=== PATIENT | male | born 1980 | race Caucasian/White ===

== ENCOUNTER → 2016-10-26 | Outpatient (CLI) | payer BC ==
--- NOTE | 2016-10-26 19:11 | DIAGNOSTIC IMAGING REPORT ---
PA CHEST WITH LEFT-SIDED RIB SERIES CLINICAL HISTORY: Left-sided chest wall pain. FINDINGS: A PA chest radiograph with 4 additional views from a left-sided rib series is compared to study dated 01/27/2011. The cardiomediastinal silhouette is unremarkable. Airspace consolidation is seen at the left lung base. The lungs and pleural spaces are otherwise clear. No pleural effusion on pneumothorax is seen. There is no radiographic evidence of left-sided rib fracture as clinically queried. The remainder of the bony thorax appears intact. IMPRESSION: 1. There is left basilar airspace consolidation. Although this could potentially represent atelectasis, correlate clinically for evidence of an infectious/inflammatory pneumonitis. Radiographic follow-up to resolution is recommended. 2. There is no radiographic evidence of acute/distracted left-sided rib fracture on the rib series as clinically queried. Electronically signed by: Mingo Granger M.D. 10/26/2016 7:09 PM Dictated Date/Time: 10/26/2016 7:05 PM
== END | disposition home or self-care (01) ==
LOC: C.RAD 18:40
PROVIDERS: ATTEND Physician Assistant Medical
DX: R07.81 Pleurodynia (principal)

== ENCOUNTER → 2016-11-22 | Outpatient (CLI) | payer BC ==
--- NOTE | 2016-11-22 19:09 | DIAGNOSTIC IMAGING REPORT ---
TWO VIEW CHEST CLINICAL HISTORY: Left-sided chest wall pain. FINDINGS: PA and lateral chest radiographs are compared to study dated 10/26/2016. The cardiomediastinal silhouette is unremarkable. The lungs and pleural spaces are clear. There is no pneumothorax. The bony thorax appears intact. IMPRESSION: The lungs are clear. Airspace consolidation at the left lung base has resolved from 10/26/2016. Electronically signed by: Mingo Granger M.D. 11/22/2016 7:08 PM Dictated Date/Time: 11/22/2016 7:06 PM
== END | disposition home or self-care (01) ==
LOC: C.RAD 18:40
PROVIDERS: ATTEND Physician Assistant Medical
DX: J18.1 Lobar pneumonia, unspecified organism (principal); R07.81 Pleurodynia

== ENCOUNTER → 2016-12-02 | Outpatient (CLI) | payer BC ==
[2016-12-02 17:34] LABS: MEAN CELL VOLUME 98.7 fL (80-100); MEAN CORPUSCULAR HEMOGLOBIN 33.9 pg (25-34); MEAN CORPUSCULAR HGB CONC 34.3 g/dl (32-36); MEAN PLATELET VOLUME 9.8 fL (7.4-10.4); PLATELET COUNT 220 K/uL (130-400); RED BLOOD COUNT 4.46 M/uL (4.7-6.1); WHITE BLOOD COUNT 5.81 K/uL (4.8-10.8)
[2016-12-02 18:04] LABS: ALT/SGPT 76 U/L (12-78); AST/SGOT 82 U/L (15-37); BLOOD UREA NITROGEN 7 mg/dl (7-18); BUN/CREATININE RATIO 9.3 (10-20); CALCIUM 9.3 mg/dl (8.5-10.1); CARBON DIOXIDE 28 mmol/L (21-32); CHLORIDE 101 mmol/L (98-107); CREATININE 0.72 mg/dl (0.60-1.40); GLUCOSE 105 mg/dl (70-99); POTASSIUM 4.1 mmol/L (3.5-5.1); SODIUM 136 mmol/L (136-145)
[2016-12-02 18:15] LABS: ALB/GLOB RATIO 1.2 (0.9-2); ALKALINE PHOSPHATASE 94 U/L (45-117)
[2016-12-02 18:50] LABS: LYME DISEASE AB IGG NEG (NEG); LYME DISEASE AB IGM NEG (NEG)
== END | disposition home or self-care (01) ==
LOC: C.LABBFT 11:31
PROVIDERS: ATTEND Physician Assistant Medical
DX: R25.2 Cramp and spasm (principal)

== ENCOUNTER → 2016-12-09 | Outpatient (CLI) | payer BC ==
--- NOTE | 2016-12-09 08:16 | DIAGNOSTIC IMAGING REPORT ---
ABDOMINAL ULTRASOUND, RIGHT UPPER QUADRANT HISTORY: Elevated transaminase level. COMPARISON: None. FINDINGS: Liver morphology is normal. Hepatic echogenicity is likely increased. There are no hepatic lesions. There is no biliary ductal dilatation. The common bile duct measures 4 mm in caliber. The gallbladder is normal. There are no gallstones. The pancreas is within normal limits although the tail is partially obscured. There is no right hydronephrosis. IMPRESSION: 1. No gallstones or biliary ductal dilatation. 2. Possible fatty infiltration of the liver. Electronically signed by: Goyo Swift M.D. 12/09/2016 8:15 AM Dictated Date/Time: 12/09/2016 8:13 AM
[2016-12-09 11:08] LABS: TOTAL IRON BINDING CAPACITY 341 mcg/dl (250-450)
[2016-12-10 13:56] LABS: ALPHA-1-ANTITRYPSIN TC 67710E 135 MG/DL (83-199)
== END | disposition home or self-care (01) ==
LOC: C.ULTR 07:39
PROVIDERS: ATTEND Physician Assistant Medical
DX: R74.0 Nonspecific elevation of levels of transaminase and lactic acid dehydrogenase [LDH] (principal)

== ENCOUNTER 2023-11-01 16:29 | Inpatient (IN) ==
--- NOTE | 2023-11-01 16:35 | ED Triage Note ---
Date of Service November 01, 2023 Provider in Triage Author: Jackie Ruggiero History of Present Illness This patient was briefly evaluated while in triage. An abbreviated physical exam was performed. This patient is a 43-year-old Male who presents to the ED for evaluation of jaundice. He has noticed this over the past few days. States that he has noticed yellowing of his eyes and skin. Denies any abdominal pain or vomiting. Does report that he has been drinking heavier than normal recently due to a family . Physical Exam GENERAL: Non-toxic and in no acute distress. HEENT: Scleral icterus noted. SKIN: Jaundice noted. HEART: Regular rate and rhythm. LUNGS: Clear to auscultation. No accessory muscle use. ABDOMEN: Soft, nontender. NEURO: Alert and oriented. No obvious neurological deficits on quick neuro exam. Initial orders for labs and / or imaging were placed and patient was placed in the waiting area until a bed is available. Please see further documentation for the full ED course.
[2023-11-01 17:54] LABS: Albumin Level 3.1 gm/dl (3.4-5.0); BUN Creatinine Ratio 11.6 (10-20); Bilirubin Direct 7.7 mg/dl (0-0.2); Bilirubin,Total 13.1 mg/dl (0.2-1.0); Calcium 8.6 mg/dl (8.6-10.3); Creatinine Clr Calc Pharmacy 126.4 ml/min; Est GFR (African American) 133.8 ml/min; Est GFR (Non-African American) 115.5 ml/min; Total Protein 7.9 gm/dl (6.0-8.3)
[2023-11-01 18:11] LABS: INR 2.4 (0.9-1.1); Prothrombin Time 25.3 Seconds (9.0-12.0)
[2023-11-01 18:19] LABS: Basophils # (auto) 0.07 K/uL (0.00-0.20); Basophils % (auto) 0.9 %; Eosinophils # (auto) 0.09 K/uL (0.00-0.50); Eosinophils % (auto) 1.1 %; Hematocrit (blood only) 35.9 % (42.0-52.0); Hemoglobin 13.2 g/dl (14.0-18.0); Howell-Jolly Bodies 1+; Immature Granulocytes # (auto) 0.05 K/uL (0.01-0.20); Immature Granulocytes % (auto) 0.6 %; Lymphocytes # (auto) 0.24 K/uL (1.20-3.40); Mean Corpuscular Hgb Conc 36.8 g/dL (32.0-36.0); Mean Corpuscular Volume 97.8 fL (80.0-100.0); Mean Platelet Volume 11.2 fL (9.4-12.4); Monocytes # (auto) 1.33 K/uL (0.11-0.59); Monocytes % (auto) 16.9 %; Neutrophils # (auto) 6.11 K/uL (1.40-6.50); Neutrophils % (auto) 77.5 %; Pappenheimer Bodies 2+; Platelet Count 83 K/uL (130-400); Platelet Estimate Decreased (Normal); Polychromasia 2+; RDW Coefficient of Variation 17.1 % (11.5-14.5); RDW Standard Deviation 60.9 fL (36.4-46.3); Red Blood Count 3.67 M/uL (4.70-6.10); Target Cells 2+; White Blood Count 7.89 K/ul (4.8-10.8)
[2023-11-01] MEDS: OPTIRAY 320 100ml IV ONE (18:50)
--- NOTE | 2023-11-01 19:46 | CT Scan Report ---
Exam(s): CT ABDOMEN + PELVIS With Contrast IV Amt: 93 cc opti 320 EXAM: CT Abdomen and Pelvis With Intravenous Contrast CLINICAL HISTORY: Reason for exam: Jaundice. TECHNIQUE: Axial computed tomography images of the abdomen and pelvis with intravenous contrast. CTDI is 11.18 mGy and DLP is 556.53 mGy-cm. Automated exposure control was utilized for the study. A dose lowering technique was utilized adhering to the principles of ALARA. CONTRAST: Patient received 93 cc opti 320 of IV contrast COMPARISON: No relevant prior studies available. FINDINGS: Lung bases: Unremarkable. No mass. No consolidation. ABDOMEN: Liver: Hepatic steatosis. Gallbladder and bile ducts: Unremarkable. No calcified stones. No ductal dilation. Pancreas: Unremarkable. No mass. No ductal dilation. Spleen: Splenomegaly. Adrenals: Unremarkable. No mass. Kidneys and ureters: Unremarkable. No hydronephrosis or delayed nephrogram prepared wall thickening of the urinary bladder, correlate for UTI. Stomach and bowel: Mild wall thickening of the ascending and proximal transverse colon, consistent with colitis. Diverticulosis, without acute diverticulitis. No bowel obstruction. No free air. PELVIS: Appendix: No findings to suggest acute appendicitis. Bladder: Unremarkable. No mass. Reproductive: Unremarkable as visualized. ABDOMEN and PELVIS: Intraperitoneal space: See above. Bones/joints: Degenerative changes of the spine. No acute fracture. No dislocation. Soft tissues: Unremarkable. Vasculature: Atherosclerotic changes of the aorta. No abdominal aortic aneurysm. Lymph nodes: Unremarkable. No enlarged lymph nodes. IMPRESSION: 1. No hydronephrosis or delayed nephrogram prepared wall thickening of the urinary bladder, correlate for UTI. 2. Mild wall thickening of the ascending and proximal transverse colon, consistent with colitis. 3. Hepatic steatosis. 4. Splenomegaly. 5. Diverticulosis, without acute diverticulitis. No bowel obstruction. No free air. Electronically signed by: Jamin Louise MD 11/01/23 19:45 PM
[2023-11-01] MEDS: POTASSIUM CHLORIDE CRTAB 20 MEQ TABCR PO STA ×2 (20:26→23:46)
[2023-11-01] MEDS: PHYTONADIONE 10 MG in DEXTROSE 5% 50 ML IV ONE (20:41)
--- NOTE | 2023-11-01 20:48 | History & Physical Report ---
Date of Service November 01, 2023 Assessment & Plan (1) Jaundice: Plan: 43-year-old male presenting with painless jaundice. Patient reports daily alcohol use over the past several weeks. Has been trying to cut back over the last several days. Last drink on 10/28/2023. Patient noted by a friend to have scleral icterus and jaundice on 10/29/2023. Patient otherwise feels well and denies recent illness, abdominal pain, nausea, vomiting, edema. Abnormal LFTs and predominantly obstructive pattern with T. bili = 13.1, D bili = 7.7, alk phos = 225. Also with elevation of AST = 86. Patient does have evidence of synthetic dysfunction with low albumin = 3.1, sodium = 131, INR = 2.4, platelets = 83. Additional workup thus far reveals markedly elevated ferritin at 1430 as well as negative acetaminophen level Acute hepatitis panel is pending as is workup for tickborne illnesses (Lyme, anaplasmosis, babesiosis) -Admit to medical Awaiting additional workup Repeat labs in the morningBMP, CBC, LFTs, INR MRCP ordered. Patient reports having metal in his eye. X-ray of orbits has been ordered and needs to be read by radiologist prior to proceeding with the MRI Dietary consultation appreciated -GI consultationappreciate assistance Elevated ferritin at 1430 raises concern for possible hereditary hemochromatosis. Will order transferrin saturation for additional workup. Consider HFE testing, possible biopsy pending results Patient did receive 1 dose of prednisolone 40 mg. Will hold off on additional steroids at this time (2) Abnormal LFTs: Plan: As above, patient with painless jaundice. Predominantly obstructive pattern. He does have a history of alcohol abuse but reports drinking only 2-3 beverages per night. MRCP orderedwill be completed pending results of orbit x-ray Follow acute hepatitis panel, tickborne illness panel Transferrin saturation-possible hereditary hemochromatosis? Given elevated ferritin. Appreciate GI assistance with diagnosis -HUGO S at risk protocol with IV Ativan as needed Continue thiamine and vitamin B12 (3) Dilated aortic root: Plan: Patient with dilated aortic root. Last measured at 4.3 cm. He follows routinely with cardiology and is on beta-winter therapy with metoprolol 50 mg p.o. daily Continue metoprolol (4) Electrolyte abnormality: Plan: Patient with hypomagnesemia, hypokalemia and hypophosphatemia. Also with hyponatremia which is likely secondary to his underlying liver disease. Possible poor dietary intake resulting in other electrolyte abnormalities Replete and repeat labs History of Present Illness Chief Complaint: Jaundice, scleral icterus Primary Care Provider: Lenore Swift MD Gaetano Ortiz is a pleasant 43-year-old male with history of a dilated aortic root, hypertension and anxiety presenting from home with report of scleral icterus and jaundice. Patient reports feeling fine. Denies fever, chills, nausea, vomiting, diarrhea, edema, bleeding or bruising, abdominal pain or bloating. No recent illness. He reports that his friend commented to him on 10/29/2023 that his eyes appeared yellow. Patient with no additional complaints. Patient's mother approximately 1 month ago from an [place]. Patient has been drinking more alcohol over the last couple of weeks. He reports drinking 2-3 beverages per night, possibly more on occasion. He does report weaning himself down over the last several days. His last drink was on 10/28/2023. He reports that he threw away all the alcohol in his home over the weekend. He has no history of withdrawal symptoms or seizures. No pre-existing history of liver disease although was told once that his enzymes were high which was thought to be secondary to alcohol. Patient with no history of blood transfusions or IV drug use. He does not take Tylenol. No known tick exposures. He does have several tattoos which he got at reputable places. In the ER he is afebrile, hemodynamically stable ER course: Vitamin K 10 mg IV Potassium chloride 80 mEq p.o. Prednisolone 40 mg p.o. Banana bag x 500 mL Allergies Allergy/AdvReac Type Severity Reaction Status Date / Time No Known Allergies Allergy Verified 11/01/23 20:54 Home Medications Medication Instructions Recorded Confirmed Type folic acid 1 mg tablet 1 mg PO DAILY 10/18/18 11/01/23 History thiamine HCl (vitamin B1) 100 mg 100 mg PO DAILY 10/18/18 11/01/23 History tablet (Vitamin B-1) metoprolol succinate 50 mg 50 mg PO DAILY #90 tabs 09/19/23 11/01/23 Rx tablet,extended release 24 hr ibuprofen 200 mg tablet 600 mg PO Q6H PRN Pain 11/01/23 11/01/23 History Past Med/Surg History Medical History (Updated 11/02/23 @ 01:26 by Josie Horvath DO) Tachycardia Sinusitis Rib pain on left side Nicotine dependence Muscle cramps Left lower lobe pneumonia Hypertension Generalized anxiety disorder Elevated transaminase level Dilated aortic root Surgical History (Updated 11/02/23 @ 01:06 by Josie Horvath DO) History of hernia repair Family History Father Heart disease Myocardial infarction Mother Heart disease Breast cancer Myocardial infarction Denies family history of Ovarian cancer Prostate cancer Colorectal cancer Social History (Updated 11/02/23 @ 01:07 by Josie Horvath DO) Smoking Status: Current every day smoker Tobacco Type: Cigarettes Age Started Using Tobacco: 13; packs per day: 1; Second Hand Exposure: No; Do You Dip or Chew Tobacco: No; Hx Alcohol Use: Yes Alcohol type: beer and hard liquor Hx Substance Use: Yes Last Used Substance: Days (ago) Last Used Substance Other:: last night Preferred Language: Sinhala Communication Ability: Effective Accounts Receivable Manager Required: No Beliefs That Will Affect Care: None marital status: Current Living Situation: Spouse current occupational status: unemployed Feels Safe at Home: Yes Dental Care, Regularly: No Physical Activity Frequency: Daily Seatbelt Use: always Sunscreen Use: No Assistive Devices: None Review of Systems Review of Systems: All systems reviewed & are unremarkable except as noted in HPI & below Physical Exam Physical Exam: General: Anxious appearing male, resting comfortably, no acute distress Skin: Patient with jaundice HEENT: NC/AT, PERRL, EOMI, icteric sclera, conjunctiva without injection, external ear normal to inspection and nontender, nares patent, moist mucus membranes, dentition intact, jaundice of oral mucosa, neck supple, trachea midline, no LAD, no thyromegaly, no JVD Heart: +S1/S2, regular, no m/r/g Lungs: equal air entry bilaterally, no rales/rhonchi/wheezes Abd: +BS, soft, NT/ND, no masses/organomegaly/ascites Ext: warm, 2+ pulses in UE/LE bilaterally, no clubbing/cyanosis or edema Neuro: nonfocal, patient AA&O x 4, speech intact, no facial droop, moving all extremities on command with equal strength 5/5 Results & Data Results & Data Vital Signs (Past 12 Hours) Vital Signs Temp Pulse Pulse Resp BP BP Pulse Ox 11/01/23 20:12 69 17 148/85 H 97 11/01/23 16:30 82 18 148/77 H 97 11/01/23 16:30 36.9 C 82 18 148/77 H 97 O2 Del Method 11/01/23 20:12 Room Air 11/01/23 16:30 Room Air 11/01/23 16:30 Room Air Laboratory Results Laboratory Results WBC 7.89 K/ul (4.8-10.8) 11/01/23 17:07 RBC 3.67 M/uL (4.70-6.10) L 11/01/23 17:07 Hgb 13.2 g/dl (14.0-18.0) L 11/01/23 17:07 Hct 35.9 % (42.0-52.0) L 11/01/23 17:07 MCV 97.8 fL (80.0-100.0) 11/01/23 17:07 MCH 36.0 pg (25.0-34.0) H 11/01/23 17:07 MCHC 36.8 g/dL (32.0-36.0) H 11/01/23 17:07 RDW Std Deviation 60.9 fL (36.4-46.3) H 11/01/23 17:07 RDW Coeff of Mikki 17.1 % (11.5-14.5) H 11/01/23 17:07 Plt Count 83 K/uL (130-400) L 11/01/23 17:07 MPV 11.2 fL (9.4-12.4) 11/01/23 17:07 Immature Gran % (Auto) 0.6 % 11/01/23 17:07 Neut % (Auto) 77.5 % 11/01/23 17:07 Lymph % (Auto) 3.0 % 11/01/23 17:07 [place] % (Auto) 16.9 % 11/01/23 17:07 Eos % (Auto) 1.1 % 11/01/23 17:07 Baso % (Auto) 0.9 % 11/01/23 17:07 Neut # (Auto) 6.11 K/uL (1.40-6.50) 11/01/23 17:07 Lymph # (Auto) 0.24 K/uL (1.20-3.40) L 11/01/23 17:07 [place] # (Auto) 1.33 K/uL (0.11-0.59) H 11/01/23 17:07 Eos # (Auto) 0.09 K/uL (0.00-0.50) 11/01/23 17:07 Baso # (Auto) 0.07 K/uL (0.00-0.20) 11/01/23 17:07 Immature Gran # (Auto) 0.05 K/uL (0.01-0.20) 11/01/23 17:07 Platelet Estimate Decreased (Normal) L 11/01/23 17:07 Polychromasia 2+ 11/01/23 17:07 Pappenheimer Bodies 2+ 11/01/23 17:07 Target Cells 2+ 11/01/23 17:07 [place] Bodies 1+ 11/01/23 17:07 PT 25.3 Seconds (9.0-12.0) H 11/01/23 17:07 INR 2.4 (0.9-1.1) H 11/01/23 17:07 Sodium 131 mmol/L (136-145) L 11/01/23 17:07 Potassium 3.0 mmol/L (3.5-5.1) L 11/01/23 17:07 Chloride 99 mmol/L (98-107) 11/01/23 17:07 Carbon Dioxide 23 mmol/L (21-32) 11/01/23 17:07 Anion Gap 9 (3-11) 11/01/23 17:07 BUN 8 mg/dl (6-23) 11/01/23 17:07 Creatinine 0.69 mg/dl (0.6-1.4) 11/01/23 17:07 Est Cr Clr Drug Dosing 126.4 ml/min 11/01/23 17:07 Est GFR ( Amer) 133.8 ml/min 11/01/23 17:07 Est GFR (Non-Af Amer) 115.5 ml/min 11/01/23 17:07 BUN/Creatinine Ratio 11.6 (10-20) 11/01/23 17:07 Glucose 100 mg/dl (70-99(Fasting)) H 11/01/23 17:07 Calcium 8.6 mg/dl (8.6-10.3) 11/01/23 17:07 Phosphorus 1.8 mg/dl (2.5-4.9) L 11/01/23 22:39 Magnesium 1.5 mg/dl (1.7-2.4) L 11/01/23 22:39 Ferritin 1430.0 ng/ml (8-388) H 11/01/23 22:39 Total Bilirubin 13.1 mg/dl (0.2-1.0) H 11/01/23 17:07 Direct Bilirubin 7.7 mg/dl (0-0.2) H 11/01/23 17:07 AST 86 U/L (13-39) H 11/01/23 17:07 ALT 22 U/L (7-52) 11/01/23 17:07 Alkaline Phosphatase 225 U/L (34-104) H 11/01/23 17:07 Total Protein 7.9 gm/dl (6.0-8.3) 11/01/23 17:07 Albumin 3.1 gm/dl (3.4-5.0) L 11/01/23 17:07 Lipase 89 U/L (11-82) H 11/01/23 17:07 Acetaminophen < 3 ug/ml (10-30) L 11/01/23 22:39 Ethyl Alcohol mg/dL < 10.0 mg/dl (<10.0) 11/01/23 22:39 Anaplasma Smear See Comment 11/01/23 17:07 Babesia Smear See Comment 11/01/23 17:07 Impressions Abdomen/Pelvis CT 11/01/23 16:35 Exam(s): CT ABDOMEN + PELVIS With Contrast IV Amt: 93 cc opti 320 EXAM: CT Abdomen and Pelvis With Intravenous Contrast CLINICAL HISTORY: Reason for exam: Jaundice. TECHNIQUE: Axial computed tomography images of the abdomen and pelvis with intravenous contrast. CTDI is 11.18 mGy and DLP is 556.53 mGy-cm. Automated exposure control was utilized for the study. A dose lowering technique was utilized adhering to the principles of ALARA. CONTRAST: Patient received 93 cc opti 320 of IV contrast COMPARISON: No relevant prior studies available. FINDINGS: Lung bases: Unremarkable. No mass. No consolidation. ABDOMEN: Liver: Hepatic steatosis. Gallbladder and bile ducts: Unremarkable. No calcified stones. No ductal dilation. Pancreas: Unremarkable. No mass. No ductal dilation. Spleen: Splenomegaly. Adrenals: Unremarkable. No mass. Kidneys and ureters: Unremarkable. No hydronephrosis or delayed nephrogram prepared wall thickening of the urinary bladder, correlate for UTI. Stomach and bowel: Mild wall thickening of the ascending and proximal transverse colon, consistent with colitis. Diverticulosis, without acute diverticulitis. No bowel obstruction. No free air. PELVIS: Appendix: No findings to suggest acute appendicitis. Bladder: Unremarkable. No mass. Reproductive: Unremarkable as visualized. ABDOMEN and PELVIS: Intraperitoneal space: See above. Bones/joints: Degenerative changes of the spine. No acute fracture. No dislocation. Soft tissues: Unremarkable. Vasculature: Atherosclerotic changes of the aorta. No abdominal aortic aneurysm. Lymph nodes: Unremarkable. No enlarged lymph nodes. IMPRESSION: 1. No hydronephrosis or delayed nephrogram prepared wall thickening of the urinary bladder, correlate for UTI. 2. Mild wall thickening of the ascending and proximal transverse colon, consistent with colitis. 3. Hepatic steatosis. 4. Splenomegaly. 5. Diverticulosis, without acute diverticulitis. No bowel obstruction. No free air. Electronically signed by: Jamin Louise MD 11/01/23 19:45 PM Portal Vein US 11/01/23 20:47 Exam(s): US OTHER duplex portal hepatic veins EXAM: US Duplex Arterial/Venous of the Abdomen, Complete CLINICAL HISTORY: Reason for exam: Abnormal LFTs. TECHNIQUE: Real-time duplex ultrasound scan of the abdomen integrating B-mode two- dimensional vascular structure, Doppler spectral analysis and color flow Doppler imaging. COMPARISON: Same day CT abdomen/pelvis FINDINGS: Portal veins: Patent portal veins with normal direction of flow. Hepatic artery: Patent hepatic arteries. Hepatic veins: Patent hepatic veins. Other vasculature: Recanalized patent umbilical vein. Liver: Distended gallbladder containing sludge. Nonspecific mild prominence of the gallbladder wall and mild edema. This could be secondary to underlying liver disease. Negative sonographic Mendez's sign suggests against acute cholecystitis. IMPRESSION: Distended gallbladder containing sludge. Nonspecific mild prominence of the gallbladder wall and mild edema. This could be secondary to underlying liver disease. Negative sonographic Mendez's sign suggests against acute cholecystitis. Patent hepatic vessels with normal direction of flow. Electronically signed by: Yancy Crawford M.D. 11/01/23 22:31 PM Code Status & VTE Plan VTE Prophylaxis Plan VTE Prophylaxis will be ordered: Yes PG Care Time/CCT Total # of Minutes Spent Total Time Spent with Patient: Total time spent is greater than 50% in coordination of care (as documented) at patient's floor/unit and/or counseling patient: Coding Level of Care Code 90246 INT INP/OBS CARE 3/75MIN Diagnoses Jaundice R17 Abnormal LFTs R79.89 Dilated aortic root I77.810 Electrolyte abnormality E87.8
[2023-11-01] MEDS: prednisoLONE sod phosphate 15 MG/5 ML PO STA (22:09)
[2023-11-01] MEDS ORDERED: ONDANSETRON INJ 2 MG/ML 2 ML VIAL IV PRN (22:28)
[2023-11-01] MEDS ORDERED: LORazepam 1 MG in SYRINGE 0.5 ML IV PRN (22:28)
--- NOTE | 2023-11-01 22:32 | Ultrasound Report ---
Exam(s): US OTHER duplex portal hepatic veins EXAM: US Duplex Arterial/Venous of the Abdomen, Complete CLINICAL HISTORY: Reason for exam: Abnormal LFTs. TECHNIQUE: Real-time duplex ultrasound scan of the abdomen integrating B-mode two- dimensional vascular structure, Doppler spectral analysis and color flow Doppler imaging. COMPARISON: Same day CT abdomen/pelvis FINDINGS: Portal veins: Patent portal veins with normal direction of flow. Hepatic artery: Patent hepatic arteries. Hepatic veins: Patent hepatic veins. Other vasculature: Recanalized patent umbilical vein. Liver: Distended gallbladder containing sludge. Nonspecific mild prominence of the gallbladder wall and mild edema. This could be secondary to underlying liver disease. Negative sonographic Mendez's sign suggests against acute cholecystitis. IMPRESSION: Distended gallbladder containing sludge. Nonspecific mild prominence of the gallbladder wall and mild edema. This could be secondary to underlying liver disease. Negative sonographic Mendez's sign suggests against acute cholecystitis. Patent hepatic vessels with normal direction of flow. Electronically signed by: Yancy Crawford M.D. 11/01/23 22:31 PM
[2023-11-01 23:17] LABS: Magnesium 1.5 mg/dl (1.7-2.4); Phosphorus 1.8 mg/dl (2.5-4.9)
[2023-11-01] MEDS: MULTI-VITAMIN INFUSION 10 ML, THIAMINE HCL 100 MG, FOLIC ACID 1 MG in SODIUM CHLORIDE 0... IV ONE (23:44)
[2023-11-02 01:13] LABS: Appearance Urine Clear (Clear); Bilirubin Urine 3+ (Negative); Blood Urine Negative (Negative); Color Urine Dark Yellow; Glucose Urine UA 1+ (Negative); Ketones Urine Negative (Negative); Leukocyte Esterase Urine Negative (Negative); Nitrite Urine Negative (Negative); Protein Urine Negative (Negative); Specific Gravity Urine > 1.045 (1.000-1.030); Urobilinogen Urine Negative (Negative)
[2023-11-02] MEDS: MAGNESIUM SULFATE / D5W 1 GM/100 ML BAG IV SCH (02:19)
[2023-11-02] MEDS: THIAMINE HCL 100 MG TAB PO SCH (07:52)
[2023-11-02] MEDS: NICOTINE 21 MG/24 HR TDSY TD SCH (07:52)
[2023-11-02] MEDS: POT PHOSPHATE MONOBASIC W/ SOD TAB PO SCH (07:52)
[2023-11-02] MEDS: FOLIC ACID 1 MG TAB PO SCH (07:52)
[2023-11-02] MEDS: METOPROLOL SUCC 50MG EXT REL TAB PO SCH (07:53)
[2023-11-02 08:02] LABS: Hematocrit (blood only) 34.9 % (42.0-52.0); Hemoglobin 12.9 g/dl (14.0-18.0); Mean Corpuscular Hemoglobin 36.1 pg (25.0-34.0); Mean Corpuscular Volume 97.8 fL (80.0-100.0); Mean Platelet Volume 10.3 fL (9.4-12.4); Platelet Count 97 K/uL (130-400); RDW Coefficient of Variation 17.5 % (11.5-14.5); RDW Standard Deviation 61.6 fL (36.4-46.3); Red Blood Count 3.57 M/uL (4.70-6.10); White Blood Count 5.49 K/ul (4.8-10.8)
[2023-11-02 08:28] LABS: INR 2.3 (0.9-1.1); Prothrombin Time 23.9 Seconds (9.0-12.0)
[2023-11-02 08:30] LABS: Alanine Aminotransferase 21 U/L (7-52); Albumin Level 2.8 gm/dl (3.4-5.0); Alkaline Phosphatase 187 U/L (34-104); Anion Gap 7 (3-11); Aspartate Aminotransferase 74 U/L (13-39); BUN Creatinine Ratio 13.3 (10-20); Bilirubin Direct 7.1 mg/dl (0-0.2); Blood Urea Nitrogen 8 mg/dl (6-23); Calcium 8.1 mg/dl (8.6-10.3); Carbon Dioxide 23 mmol/L (21-32); Chloride 104 mmol/L (98-107); Creatinine Clr Calc Pharmacy 146.7 ml/min; Est GFR (African American) 141.7 ml/min; Est GFR (Non-African American) 122.3 ml/min; Glucose 128 mg/dl (70-99(Fasting)); Potassium 3.9 mmol/L (3.5-5.1); Sodium 134 mmol/L (136-145); Total Protein 7.5 gm/dl (6.0-8.3); Transferrin 96 mg/dl (200-360)
[2023-11-02] MEDS ORDERED: predniSONE 20 MG TAB PO SCH (09:00)
--- NOTE | 2023-11-02 09:09 | XRay Report ---
ORBIT RADIOGRAPHS 3 VIEWS HISTORY: pre-MRI screening. COMPARISON: None. FINDINGS: There are no radiopaque foreign bodies identified within the orbits. IMPRESSION: No radiopaque foreign bodies identified within the orbits. ACT 112: Negative or not required by law. Electronically signed by: Goyo Swift M.D. 11/02/2023 9:08 AM
--- NOTE | 2023-11-02 12:54 | Magnetic Resonance Report ---
MR MRCP HISTORY: abnormal LFTs TECHNIQUE: MRCP of the abdomen was performed without contrast according to standard departmental prot ocol. COMPARISON STUDY: Abdomen and pelvis CT 11/01/2023. FINDINGS: The lung bases are clear. No hepatic masses on this noncontrast study. Mild periportal marko a is noted. The liver is enlarged measuring 23 cm in length. There is trace perihepatic ascites again noted. The unenhanced spleen is top normal in size measuring 12 cm in length. The adrenal glands and kidneys are unremarkable. No hydronephrosis. Normal pancreas. The main portal vein appears patent. N o retroperitoneal lymphadenopathy. Normal caliber abdominal aorta. Mild mesenteric and perinephric ed feng. The gallbladder remains mildly distended. No gallbladder wall thickening. Small amount of sludge within the gallbladder. The common bile duct and main pancreatic duct are normal and course and kiran jennifer. No filling defects in the common bile duct. There is recanalization of the umbilical vein with m ild periumbilical varicosities. Question of a subtle nodular contour to the liver which could represe nt early cirrhosis. This is best seen on axial fiesta image 49. No intrahepatic bile duct dilatation. There is suggestion of focal narrowing within the proximal left intrahepatic bile duct. However, no upstream dilatation to confirm a stenosis at this time. Therefore, this could be artifact. IMPRESSION: 1. Normal caliber common bile duct and main pancreatic duct. No filling defects within the common kusum e duct. 2. There is suggestion of focal narrowing within the proximal left intrahepatic bile duct. However, n o upstream dilatation to confirm a stenosis at this time. Therefore, this could be artifact. 6 month follow-up can be performed to ensure stability/resolution. 3. Small amount of gallbladder sludge again noted. No gallbladder wall thickening. 4. Mild periportal edema. 5. Hepatomegaly with recanalization of the umbilical vein and small periumbilical varicosities. There is question of a subtle nodular contour to the liver. Therefore, these findings could represent chrissy y cirrhosis. 6. Trace perihepatic ascites. ACT 112: Negative or not required by law. Electronically signed by: Harlan Quarles M.D. 11/02/2023 12:53 PM
--- NOTE | 2023-11-02 12:58 | Hospitalist Progress Note ---
Date of Service November 02, 2023 Assessment & Plan (1) Jaundice: Plan: Patient presents to the hospital on account of painless jaundice Differentials are broad, including alcohol, infection, tumor Portal vein ultrasound was done showed evidence of distended gallbladder containing sludge but no sign of acute cholecystitis. CT abdomen showed evidence of hepatic steatosis, splenomegaly mild standing and proximal transverse colon colitis. MRCP has been done, official read pending. Acute hepatitis panel has been obtained, results pending, as well as Lyme, anaplasmosis, babesiosis. GI is on consult, pressure recommendations. (2) Abnormal LFTs: Plan: As above, patient with painless jaundice. Predominantly obstructive pattern. He does have a history of alcohol abuse but reports drinking only 2-3 beverages per night. MRCP orderedwill be completed pending results of orbit x-ray Follow acute hepatitis panel, tickborne illness panel Transferrin saturation-possible hereditary hemochromatosis? Given elevated ferritin. Appreciate GI assistance with diagnosis -HUGO S at risk protocol with IV Ativan as needed Continue thiamine and vitamin B12 (3) Dilated aortic root: Plan: Patient with dilated aortic root. Last measured at 4.3 cm. He follows routinely with cardiology and is on beta-winter therapy with metoprolol 50 mg p.o. daily Continue metoprolol (4) Electrolyte abnormality: Plan: Patient with hypomagnesemia, hypokalemia and hypophosphatemia. Also with hyponatremia which is likely secondary to his underlying liver disease. Possible poor dietary intake resulting in other electrolyte abnormalities Replete and repeat labs Plan Continue monitoring in hospital, with evaluation by gastroenterology Admission and Anticipated Discharge Date Admission Date: November 01, 2023 Subjective Patient seen and examined, sitting up in the chair said he was hungry and wanted to eat. Review of Systems Review of Systems: The patient is awake, alert and oriented 3, chronically ill looking,. HEENT--PERRL, EOMI, mucous membranes and oropharynx mildly dry Neck--supple. No JVD. No bruits. Thyroid normal, trachea midline, no adenopathy. Heart--normal S1 and S2. No murmurs, rubs or gallops. Lungs--clear bilaterally, no respiratory distress, no accessory muscle use. Abdomen--normal bowel sounds and soft. Extremities--no cyanosis or clubbing. No edema. Dermatologic--normal skin turgor, normal color, no abnormal lymph nodes, no rash. Neurologic--cranial nerves II through XII grossly intact. Rheumatologic--normal range of motion. Psychiatric--normal affect. Results & Data Results & Data Vital Signs (Past 12 Hours) Vital Signs Temp Pulse Pulse Resp BP Pulse Ox O2 Del Method 11/02/23 12:32 97.9 F 66 16 114/74 98 Room Air 11/02/23 09:40 97.5 F L 65 115/75 98 Room Air PG Care Time/CCT Total # of Minutes Spent Total Time Spent with Patient: Total time spent is greater than 50% in coordination of care (as documented) at patient's floor/unit and/or counseling patient: Coding Level of Care Code 91956 SUB INP/OBS CARE 2/35MIN Diagnoses Jaundice R17 Abnormal LFTs R79.89 Dilated aortic root I77.810 Electrolyte abnormality E87.8 Time Spent (min) 35
--- NOTE | 2023-11-02 13:36 | Gastrointestinal Consultation ---
Date of Consultation November 02, 2023 Assessment & Plan (1) Alcoholic hepatitis: -Add Prednisolone 40 mg daily x 28 days -Stat INR. If INR worsens, would advise transfer to tertiary center with transplant hepatology -Await infectious hepatitis panel & HH panel -Trend CMP, PT/INR -Patient should consider alcohol rehabilitation program -Outpatient hepatology management for cirrhosis Supervising Physician Co-Signing Physician Notes Agree with SANTOS Lebron as above Interviewed and examined patient and agree with above Abd: Soft, NT, ND, +BS Continue current therapy and supportive care Prednisolone 40 mg by mouth daily for 28 days due to DF >32 Advised abstinence from all alcohol as it is a known liver toxin History of Present Illness Reason for Consultation: "Abnormal LFTs" Attending Physician: Jaclyn Taveras MD History of Present Illness Patient is a 43 yo male with PMH of alcohol abuse, HTN, anxiety, & Dilated aortic root who presented to the ED due to jaundice. The patient notes a long history of alcohol related issues including multiple DUIs leading to incarceration. He notes daily alcohol consumption that was recently accelerated by the unexpected of his mother a month ago. Since that time, his consumption has increased to approximately a fifth of alcohol daily. At the time of admission, his alcohol level was 304. At present, his labs indicate an AST of 86, ALT 74, AP 225, INR 2.3, T bili 12, and D bili 7.1. He is notably jaundiced and without pain. He has pending infectious hepatitis studies. Ferritin is 1430. MRCP shows early cirrhosis, but did not show acute or alarming biliary findings. Discriminant function 66.7. Allergies Allergy/AdvReac Type Severity Reaction Status Date / Time No Known Allergies Allergy Verified 11/01/23 20:54 Home Medications Medication Instructions Recorded Confirmed Type folic acid 1 mg tablet 1 mg PO DAILY 10/18/18 11/01/23 History thiamine HCl (vitamin B1) 100 mg 100 mg PO DAILY 10/18/18 11/01/23 History tablet (Vitamin B-1) metoprolol succinate 50 mg 50 mg PO DAILY #90 tabs 09/19/23 11/01/23 Rx tablet,extended release 24 hr ibuprofen 200 mg tablet 600 mg PO Q6H PRN Pain 11/01/23 11/01/23 History Patient History Medical History Tachycardia Sinusitis Rib pain on left side Nicotine dependence Muscle cramps Left lower lobe pneumonia Hypertension Generalized anxiety disorder Elevated transaminase level Dilated aortic root Surgical History History of hernia repair Family History Father Heart disease Myocardial infarction Mother Heart disease Breast cancer Myocardial infarction Denies family history of Ovarian cancer Prostate cancer Colorectal cancer Social History Smoking Status: Current every day smoker Tobacco Type: Cigarettes Age Started Using Tobacco: 13; packs per day: 1; Second Hand Exposure: No; Do You Dip or Chew Tobacco: No; Tobacco Cessation Education Requested by Patient: Yes Hx Alcohol Use: Yes Alcohol type: beer and hard liquor Hx Substance Use: Yes Last Used Substance: Days (ago) Last Used Substance Other:: last night Preferred Language: Bahraini Communication Ability: Effective Notereader Required: No Beliefs That Will Affect Care: None marital status: Current Living Situation: Spouse current occupational status: unemployed Other Information That Helps Us Care for You: No Feels Safe at Home: Yes Safety Concerns: Feels Safe At This Time Dental Care, Regularly: No Physical Activity Frequency: Daily Seatbelt Use: always Sunscreen Use: No Assistive Devices: Cane Review of Systems Constitutional: no fever and no chills Respiratory: no cough and no dyspnea Cardiovascular: no chest pain Gastrointestinal: no abdominal pain Integumentary: + yellowing of the skin Physical Exam Constitutional: well developed; no acute distress Respiratory: normal respiratory effort Gastrointestinal (Abdomen): Inspection/Auscultation: abdomen normal to inspection Psychiatric: Orientation: alert and oriented x 3 Results & Data Vital Signs (Past 12 Hours) Vital Signs Temp Pulse Pulse Resp BP Pulse Ox O2 Del Method 11/02/23 12:32 36.6 C 66 16 114/74 98 Room Air 11/02/23 09:40 36.4 C L 65 115/75 98 Room Air PG Care Time/CCT Total # of Minutes Spent Total Time Spent with Patient: Total time spent is greater than 50% in coordination of care (as documented) at patient's floor/unit and/or counseling patient: Coding Level of Care Code 08503 IN/OBS CONSULT LVL 4,60M Diagnoses Alcoholic hepatitis K70.10
[2023-11-02 13:46] LABS: INR 2.2 (0.9-1.1); Prothrombin Time 22.5 Seconds (9.0-12.0)
[2023-11-02 15:17] LABS: Iron 153 mcg/dl (35-175); Unsaturated Iron Binding Cap < 55 mcg/dl (155-355)
[2023-11-02] MEDS: prednisoLONE sod phosphate 15 MG/5 ML PO SCH (15:38)
[2023-11-03 08:39] LABS: Alanine Aminotransferase 18 U/L (7-52); Albumin Globulin Ratio 0.6 (0.9-2); Albumin Level 2.4 gm/dl (3.4-5.0); Alkaline Phosphatase 157 U/L (34-104); Anion Gap 6 (3-11); Aspartate Aminotransferase 55 U/L (13-39); Bilirubin,Total 9.7 mg/dl (0.2-1.0); Blood Urea Nitrogen 8 mg/dl (6-23); Calcium 7.6 mg/dl (8.6-10.3); Carbon Dioxide 23 mmol/L (21-32); Chloride 105 mmol/L (98-107); Est GFR (African American) > 150.0 ml/min; Est GFR (Non-African American) 131.8 ml/min; Globulin 3.8 gm/dl (2.5-4.0); Glucose 157 mg/dl (70-99(Fasting)); Potassium 3.1 mmol/L (3.5-5.1); Sodium 134 mmol/L (136-145); Total Protein 6.2 gm/dl (6.0-8.3)
[2023-11-03] MEDS: POTASSIUM CHLORIDE CRTAB 20 MEQ TABCR PO STA (12:18)
--- NOTE | 2023-11-03 12:18 | Hospitalist Progress Note ---
Date of Service November 03, 2023 Assessment & Plan (1) Jaundice: Plan: Patient presents to the hospital on account of painless jaundice Differentials are broad, including alcohol, infection, tumor Portal vein ultrasound was done showed evidence of distended gallbladder containing sludge but no sign of acute cholecystitis. CT abdomen showed evidence of hepatic steatosis, splenomegaly mild standing and proximal transverse colon colitis. MRCP was essentially within normal limits Acute hepatitis panel has been obtained, results pending, as well as Lyme, anaplasmosis, babesiosis. GI is on consult, started p.o. prednisone for 28 days on account of Maddreys discriminant factor above 32 (2) Abnormal LFTs: Plan: Most likely due to alcohol abuse and cirrhosis MRCP did not show any blockages in the noncritical bile ducts Hepatitis panel pending (3) Dilated aortic root: Plan: Patient with dilated aortic root. Last measured at 4.3 cm. He follows routinely with cardiology and is on beta-winter therapy with metoprolol 50 mg p.o. daily Continue metoprolol (4) Electrolyte abnormality: Plan: Patient with hypomagnesemia, hypokalemia and hypophosphatemia. Also with hyponatremia which is likely secondary to his underlying liver disease. Possible poor dietary intake resulting in other electrolyte abnormalities Replete and repeat labs Plan Hopefully discharge 24 hours Admission and Anticipated Discharge Date Admission Date: November 01, 2023 Subjective Patient seen and examined, sitting up in the chair said he was hungry and wanted to eat. Review of Systems Review of Systems: All systems reviewed are negative, apart from the ones contained in the history. Physical Exam Physical Exam: The patient is awake, alert and oriented 3, chronically ill looking HEENT--PERRL, EOMI, mucous membranes and oropharynx mildly dry, jaundice+++ Neck--supple. No JVD. No bruits. Thyroid normal, trachea midline, no adenopathy. Heart--normal S1 and S2. No murmurs, rubs or gallops. Lungs--clear bilaterally, no respiratory distress, no accessory muscle use. Abdomen--normal bowel sounds and soft. Extremities--no cyanosis or clubbing. No edema. Dermatologic--normal skin turgor, normal color, no abnormal lymph nodes, no rash. Neurologic--cranial nerves II through XII grossly intact. Rheumatologic--normal range of motion. Psychiatric--normal affect. Results & Data Results & Data Vital Signs (Past 12 Hours) Vital Signs Temp Pulse Resp BP Pulse Ox O2 Del Method 11/03/23 09:01 98.2 F 85 16 148/84 H 97 Room Air PG Care Time/CCT Total # of Minutes Spent Total Time Spent with Patient: Total time spent is greater than 50% in coordination of care (as documented) at patient's floor/unit and/or counseling patient: Coding Level of Care Code 45467 SUB INP/OBS CARE 2/35MIN Diagnoses Jaundice R17 Abnormal LFTs R79.89 Dilated aortic root I77.810 Electrolyte abnormality E87.8 Time Spent (min) 35
--- NOTE | 2023-11-03 12:21 | Gastroenterology Progress Note ---
Date of Service November 03, 2023 Assessment & Plan (1) Alcoholic hepatitis: Plan: MELD currently 26. DF 58.0. -Continue to closely trend INR -Continue to monitor CMP -Continue Prednisolone 40 mg daily x 28 total days -Await results of infectious hepatitis panel -Would advise alcohol rehab -If liver function worsens/decompensates, would need to transfer to tertiary center with hepatology/transplant capabilities Admission and Anticipated Discharge Date Admission Date: November 01, 2023 Subjective Patient is a 43 yo male with alcoholic hepatitis. Patient notes he is feeling well and is very frustrated that he is admitted to the hospital still. His T bili is 9.7, down from yesterday. INR 2.2, also down from yesterday. AST 55, ALT 18. Patient is jaundiced but denies physical complaints. Review of Systems Constitutional: no fever and no chills Gastrointestinal: no abdominal pain Psychiatric: no problem reported Physical Exam Constitutional: well developed Respiratory: normal respiratory effort Cardiovascular: Rate/Rhythm: regular rate Gastrointestinal (Abdomen): Inspection/Auscultation: abdomen normal to inspection Skin: + jaundice Psychiatric: Orientation: alert and oriented x 3 Results & Data Results & Data Vital Signs (Past 12 Hours) Vital Signs Temp Pulse Resp BP Pulse Ox O2 Del Method 11/03/23 09:01 36.8 C 85 16 148/84 H 97 Room Air PG Care Time/CCT Total # of Minutes Spent Total Time Spent with Patient: Total time spent is greater than 50% in coordination of care (as documented) at patient's floor/unit and/or counseling patient: Coding Level of Care Code 10004 SUB INP/OBS CARE 3/50MIN Diagnoses Alcoholic hepatitis K70.10
[2023-11-04 09:08] LABS: Albumin Globulin Ratio 0.6 (0.9-2); Albumin Level 2.6 gm/dl (3.4-5.0); BUN Creatinine Ratio 12.7 (10-20); Bilirubin,Total 9.7 mg/dl (0.2-1.0); Calcium 7.5 mg/dl (8.6-10.3); Est GFR (African American) 146.9 ml/min; Est GFR (Non-African American) 126.7 ml/min; Globulin 4.1 gm/dl (2.5-4.0); Potassium 2.8 mmol/L (3.5-5.1); Total Protein 6.7 gm/dl (6.0-8.3)
[2023-11-04 09:32] LABS: Prothrombin Time 21.4 Seconds (9.0-12.0)
[2023-11-04 10:02] LABS: HBSAG NON-REACTIVE (NON-REACTIVE); Hepatitis A Antibody IgM NON-REACTIVE (NON-REACTIVE); Hepatitis B Core Antibody IgM NON-REACTIVE (NON-REACTIVE)
[2023-11-04] MEDS: POTASSIUM CHLORIDE CRTAB 20 MEQ TABCR PO STA (10:14)
--- NOTE | 2023-11-04 12:24 | Discharge Summary ---
Date of Service November 04, 2023 Admission HPI Per Admitting Provider Gaetano Ortiz is a pleasant 43-year-old male with history of a dilated aortic root, hypertension and anxiety presenting from home with report of scleral icterus and jaundice. Patient reports feeling fine. Denies fever, chills, nausea, vomiting, diarrhea, edema, bleeding or bruising, abdominal pain or bloating. No recent illness. He reports that his friend commented to him on 10/29/2023 that his eyes appeared yellow. Patient with no additional complaints. Patient's mother approximately 1 month ago from an [place]. Patient has been drinking more alcohol over the last couple of weeks. He reports drinking 2-3 beverages per night, possibly more on occasion. He does report weaning himself down over the last several days. His last drink was on 10/28/2023. He reports that he threw away all the alcohol in his home over the weekend. He has no history of withdrawal symptoms or seizures. No pre-existing history of liver disease although was told once that his enzymes were high which was thought to be secondary to alcohol. Patient with no history of blood transfusions or IV drug use. He does not take Tylenol. No known tick exposures. He does have several tattoos which he got at reputable places. In the ER he is afebrile, hemodynamically stable ER course: Vitamin K 10 mg IV Potassium chloride 80 mEq p.o. Prednisolone 40 mg p.o. Banana bag x 500 mL Principal Diagnosis Alcoholic hepatitis Discharge Exam The patient is awake, alert and oriented 3, chronically ill looking HEENT--PERRL, EOMI, mucous membranes and oropharynx mildly dry, jaundice+++ Neck--supple. No JVD. No bruits. Thyroid normal, trachea midline, no adenopathy. Heart--normal S1 and S2. No murmurs, rubs or gallops. Lungs--clear bilaterally, no respiratory distress, no accessory muscle use. Abdomen--normal bowel sounds and soft. Extremities--no cyanosis or clubbing. No edema. Dermatologic--normal skin turgor, normal color, no abnormal lymph nodes, no rash. Neurologic--cranial nerves II through XII grossly intact. Rheumatologic--normal range of motion. Psychiatric--normal affect. Discharge Data Allergies Allergy/AdvReac Type Severity Reaction Status Date / Time No Known Allergies Allergy Verified 11/01/23 20:54 Consultations 11/01/23 19:55 ED Decision to Admit Stat 11/02/23 01:14 Consult Gastroenterology Routine Ordered Studies 11/01/23 16:35 CT abd pelvis IV con only Stat 11/01/23 20:47 US portal veins doppler [US duplex portal hepatic veins] Stat 11/02/23 00:12 MR MRCP Routine Hospital Course (1) Jaundice: Patient presents to the hospital on account of painless jaundice Differentials are broad, including alcohol, infection, tumor Portal vein ultrasound was done showed evidence of distended gallbladder containing sludge but no sign of acute cholecystitis. CT abdomen showed evidence of hepatic steatosis, splenomegaly mild standing and proximal transverse colon colitis. MRCP was essentially within normal limits Acute hepatitis panel has been obtained, results pending, as well as Lyme, anaplasmosis, babesiosis. GI is on consult, started p.o. prednisone for 28 days on account of Maddreys discriminant factor above 32 (2) Abnormal LFTs: Most likely due to alcohol abuse and cirrhosis MRCP did not show any blockages in the noncritical bile ducts Hepatitis panel pending (3) Dilated aortic root: Patient with dilated aortic root. Last measured at 4.3 cm. He follows routinely with cardiology and is on beta-winter therapy with metoprolol 50 mg p.o. daily Continue metoprolol (4) Electrolyte abnormality: Patient with hypomagnesemia, hypokalemia and hypophosphatemia. Also with hyponatremia which is likely secondary to his underlying liver disease. Possible poor dietary intake resulting in other electrolyte abnormalities Replete and repeat labs Plan Discharge home Total Time Total Time Spent Total Time Spent (In Minutes): 35 Discharge Plan Discharge Items Patient Disposition: Home - Self-Care Reason For Visit: ALCOHOLIC HEPATITIS, JAUNDICE Discharge Diagnosis: alcoholic hepatitis Activity: Resume your previous activity Non-emergency contact: Primary Care Provider and Yard Supervisor Cotton Gin Call non-emergency contact if: you have any medication questions Follow-up/Referrals: Lenore Swift MD [Primary Care Provider] - 11/11/23 1:00 pm Diet: Regular Addtl Attending Provider Instructions: please make arrangemnts to folllow up with Behavioural therapy for your alcohol addiction, try as much as possible to stop drinking alcohol. Follow up with you regular PCP as soon as possible Pending Studies at Discharge: No Stand-Alone Forms: [facility], Smoking Cessation Medications and DC Order Prescriptions: New prednisolone sodium phosphate 15 mg/5 mL (3 mg/mL) Solution 40 mg PO DAILY 27 Days Qty: 359.999 0RF Continued metoprolol succinate 50 mg tablet extended release 24 hr 50 mg PO DAILY Qty: 90 3RF thiamine HCl (vitamin B1) [Vitamin B-1] 100 mg tablet 100 mg PO DAILY folic acid 1 mg tablet 1 mg PO DAILY Discontinued ibuprofen 200 mg Tablet 600 mg PO Q6H PRN (Reason: Pain) Discharge Orders: Discharge Order (Routine); Ordered 11/04/23 Ordered By: Jaclyn Taveras Admission Data Admit Date/Time: 11/01/23 20:47 Attending Provider: Jaclyn Taveras Admit Provider: Josie Horvath Primary Care Provider: Lenore Swift Other Providers: Josie Horvath; Momo Ontiveros Other Interventions: Discharge Summary Assessment (RN) Last Done: 11/04/23 10:49 Coding Level of Care Code 71435 INP/OBS DISCH >30 MIN Diagnoses Jaundice R17 Abnormal LFTs R79.89 Dilated aortic root I77.810 Electrolyte abnormality E87.8 Time Spent (min) 35
[2023-11-05 08:08] LABS: Babesia microti DNA Not Detected (Not Detected)
== END 2023-11-04 12:27 | disposition home or self-care (01) | DRG 433 ==
LOC: ED 16:29 → SUATTDRO 20:47 → 3N 20:47
DX: F17.210 Nicotine dependence, cigarettes, uncomplicated; F41.9 Anxiety disorder, unspecified; F10.10 Alcohol abuse, uncomplicated; I77.819 Aortic ectasia, unspecified site; K70.30 Alcoholic cirrhosis of liver without ascites; K70.10 Alcoholic hepatitis without ascites; E83.42 Hypomagnesemia; I10 Essential (primary) hypertension; E83.39 Other disorders of phosphorus metabolism; Z79.899 Other long term (current) drug therapy; E87.6 Hypokalemia; E87.1 Hypo-osmolality and hyponatremia